=== PATIENT | female | born 1990 | race African-American/Black ===

== ENCOUNTER 2022-03-06 15:21 | Emergency (ER) | payer MEDICAID ==
[~2022-03-06] VITALS: Ht 167.6 cm; Wt 86.0 kg
[2022-03-06 17:06] LABS: HEMATOCRIT. 32.9 % (36.0-48.0); HEMOGLOBIN. 11.4 g/dL (12.0-16.0); MEAN CORPUSCULAR HEMOGLOBIN 30.1 pg (28.0-32.0); MEAN CORPUSCULAR VOLUME 86.8 fL (81.0-99.0); MEAN PLATELET VOLUME 8.3 fl (7.4-10.4); PLATELET 203 x1000/uL (130-400); RED BLOOD CELL COUNT 3.78 mill/uL (4.2-5.4); RED CELL DISTRIBUTION WIDTH 13.8 % (11.6-14.6)
[2022-03-06 17:08] LABS: CHLORIDE 102 mEq/L (98-107)
[2022-03-06 17:09] LABS: HCG SCREEN POSITIVE
[2022-03-06 17:32] LABS: CLARITY URINE CLOUDY (CLEAR); COLOR URINE YELLOW (YELLOW); KETONES URINE 3+ (NEGATIVE); LEUKOCYTE ESTERASE URINE 2+ (NEGATIVE); NITRITE URINE POSITIVE (NEGATIVE); OCCULT BLOOD URINE 1+ (NEGATIVE); PH URINE 6.5 (4.5-8.0); PROTEIN URINE 1+ (NEGATIVE)
[2022-03-06 18:01] LABS: PLATELET ESTIMATE NORMAL
[2022-03-06] MEDS ORDERED: CEFTRIAXONE 1 G PREMIX 50 ML IV NR (19:00)
[2022-03-06] MEDS ORDERED: ONDANSETRON HCL 4MG/2ML INJ IV NR (19:00)
[2022-03-06] MEDS ORDERED: SODIUM CHLORIDE 0.9% 1,000 ML IV NR (19:00)
[2022-03-06] MEDS ORDERED: SODIUM CHLORIDE 0.9% 1,000 ML IV ONE (21:45)
[2022-03-06] MEDS ORDERED: ACETAMINOPHEN 325MG TABLET PO ONE (22:00)
[2022-03-06] MEDS ORDERED: MORPHINE SULFATE 4 MG/ML CPJ (NOT FOR IM USE) IV ONE (22:00)
[2022-03-07] VITALS: BP 118/75
== END 2022-03-07 01:13 | disposition short-term general hospital (02) ==
LOC: ER 15:21 → CANBEDREQ 03-07 01:14
DX: O98.812 Other maternal infectious and parasitic diseases complicating pregnancy, second trimester (principal); A41.9 Sepsis, unspecified organism; O23.02 Infections of kidney in pregnancy, second trimester; I49.9 Cardiac arrhythmia, unspecified; Z3A.24 24 weeks gestation of pregnancy
CPT/HCPCS: 36415; 80053; 81003; 83605; 83690; 84703; 85025; 87077; 87086; 87186; 93005; 96365; 96375; 99291; J0696; J2270; J2405; J7030